=== PATIENT | male | born 1965 | race Caucasian/White ===

== ENCOUNTER 2019-04-16 07:55 | Day surgery (SDC) | payer OTHER, SELFPAY ==
[2019-04-16] VITALS (7 sets, daily range): BP systolic 107–123; BP diastolic 73–83; PULSE 63–71; RESP 11–16; TEMP 35.6–36.3; O2SAT 88–95; BMI 181.6
[2019-04-16] MEDS: SODIUM CHLORIDE 0.9% 1,000 ML 200 ML IV (08:41)
--- NOTE | 2019-04-16 09:10 | PM.HP.1 ---
History of Present Illness History of Present Illness Date Patient Seen: 04/16/19 Time Patient Seen: 09:10 Chief complaint: [id number] Narrative: Patient presents for colorectal screening. They have never had any previous examination for such. On further history denies any recent gastrointestinal symptoms. No nausea, vomiting, abdominal pain, loss of appetite, unexplained weight loss, change in bowel habits, diarrhea, constipation, melena, hematochezia, or bright red blood per rectum. Patient History Medical History Arthritis (Acute) Surgical History Hx of total knee replacement (Acute) Family & Social History Social History: household members spouse Meds Home Medications and Allergies Home Medications Medication Instructions Recorded Confirmed Type Glucosamine Chondroitin DAILY 04/16/19 History Multi Vitamin DAILY 04/16/19 History ibuprofen 600 mg PRN 04/16/19 History potassium 6 % DAILY 04/16/19 04/16/19 History Allergies Allergy/AdvReac Type Severity Reaction Status Date / Time No Known Drug Allergies Allergy Verified 04/16/19 08:35 Review of Systems Review of Systems Narrative: A complete review of systems is negative except as noted in the HPI Exam Vital Signs (past 8 hours): - 04/16/19 08:12 Temperature 97.3 F L Pulse Rate 70 Respiratory Rate 16 Blood Pressure 116/81 Pulse Oximetry 93 Oxygen Delivery Method Room Air Narrative Exam Narrative: General-no acute distress, well nourished HEENT-moist mucous membranes, no scleral icterus Neck-supple, no lymphadenopathy Chest- non labored respirations, clear to auscultation bilaterally Cardiac-regular rate no peripheral edema Abdomen-soft, nontender, non distended Extremities-warm, well perfused Neurological-alert and oriented, no focal deficits Assessment & Plan Assessment and plan (1) Screening for colon cancer: Current visit: Yes Status: Acute Assessment & Plan narrative: The patient requires colorectal screening and colonoscopy is recommended. Technical details were discussed. Risks, benefits, alternatives explained. Risks including but not limited to myocardial infarction, aspiration, bleeding, pain, missed lesion, incomplete examination, need for further radiographic studies, colonic perforation, and need for major abdominal surgery were discussed. All questions were answered to their satisfaction, and they are in agreement with this plan.
[2019-04-16] MEDS: MIDAZOLAM 5 MG/5 ML VIAL IV (09:13)
[2019-04-16] MEDS: fentaNYL 250 MCG/5 ML INJ IV (09:13)
--- NOTE | 2019-04-16 09:28 | PM.OP.ENDO ---
Operative Date/Time/Diagnoses Date of procedure: 04/16/19 Time of procedure: 09:28 Pre-op diagnosis: Screening colonoscopy Post-op diagnosis: same Procedure & Clinicians Study performed: Colonoscopy Same procedure as scheduled: Yes Indications: 53-year-old male no previous colonoscopy presents for screening Procedure Notes SCOAP/Timeout: Perform Procedure in detail: Patient placed in left lateral decubitus position. Time out was performed. Procedural sedation was administered with Versed and Fentanyl. A rectal exam demonstrated no external hemorrhoids no internal masses. Colonoscopy scope was placed into the rectum and advanced through the colon to the cecum. The ileocecal valve was identified. The scope was then slowly withdrawn examining colon thoroughly in all directions. The colonoscopy was notable for the following 1. Diverticulosis 2. Fair quality of prep 3. No masses or polyps Scope withdrawal time: 7 Sedation minutes: 12 Findings: diverticulosis Specimen(s): none sent Complications: none Impression: Diverticulosis Post-procedure Recommendations: Colonscopy in 10 years Disposition: same day surgery
== END 2019-04-16 10:15 | disposition home or self-care (01) ==
PROVIDERS: PCP Registered Nurse Diabetes Educator; Visit Provider Surgery
PROC: 0DJD8ZZ Inspection of Lower Intestinal Tract, Via Natural or Artificial Opening Endoscopic (ICD-10-PCS; CPT 45378; principal; 2019-04-16 09:30)
DX: Z12.11 Encounter for screening for malignant neoplasm of colon (principal); K57.30 Diverticulosis of large intestine without perforation or abscess without bleeding
CPT/HCPCS: 45378; 99152; J2250; J3010